=== PATIENT | female | born 1960 | race African-American/Black ===

== ENCOUNTER 2024-05-06 16:26 | Emergency (ER) | payer MEDICAID ==
[~2024-05-06] VITALS: Ht 170.2 cm; Wt 86.5 kg
[~2024-05-06 16:26] MED LIST: ALBUPOW26; ALPR0.25 GT; AMLO1TAB22; DICY10CA PO; DIPH2.5T73 OR; DOCU50CA2; FLUT250M2; HYDR-4833; NAPR125S6; PEPCID; PROMCRY XX; PROZAC; SOMA; TRIA75TA11; TRIP1TAB OR; ZOFR4T PO; ZOLP5TAB OR; [UNRECOGNIZED DRUG - OTHER]
--- NOTE | 2024-05-06 17:46 | ED.PDOC ---
GI ASSESSMENT HPI Comments 63 year old female ADEEL presents to the ED with chief complaint of abdominal pain. Patient reports that she has been experiencing epigastric abdominal burning with associated abdominal distention for the past 6 months due to a hiatal hernia. Patient relays that she was referred by her PCP to a surgeon, awaiting appointment. Patient denies any N/V/D, dizziness, fever, chills, or chest pain. Chief Complaint: Abdominal Pain Time Seen by MD: 17:42 Primary Care Provider: JULIETA SYED Reviewed Notes: Nurses Notes, Student Services Director Notes, Medications, Allergies Allergies: Coded Allergies: Codeine (Verified Allergy, Mild, SWELLING, 07/11/23) TYLENOL WITH CODEINE #4 Aspirin (Verified Allergy, Unknown, 07/11/23) Penicillins (Verified Allergy, Unknown, 07/11/23) Morphine (Verified Adverse Reaction, Mild, UPSET STOMACH, 07/11/23) Home Meds Active Scripts Ondansetron Odt 4MG Tab (ZOFRAN PO) 4 Mg Tb, 4 MG PO Q8HR PRN, #14 TAB ODT TAB-DISSOLVE IN MOUTH, THEN SWALLOW Prov:RAISSA NELSON MD 07/11/23 Dicyclomine Hcl (BENTYL CAPSULE) 10 Mg Cp, 1 CAP PO Q6HR PRN, #20 CAP 3 Refills Prov:RAISAS NELSON MD 07/11/23 Reported Medications Promethazine Hcl (Promethazine Hcl) Hcl Cry, 1 XX 11/15/11 Triprolidine & Pseudoephedrine (Aprodine) 1 Tab Tab, 1 TAB OR 11/15/11 Diphenoxylate W/ Atropine (Lomotil) 2.5 Mg Tab, 2.5 MG OR 11/15/11 Alprazolam (Xanax) 0.25 Mg Tb, 0.25 MG GT 10/12/10 Zolpidem Tartrate (Ambien) 5 Mg Tab, 5 MG OR 10/12/10 [Prozac] No Conflict Check 10/12/10 Docusate Sodium (Colace) 50 Mg Cap 10/11/10 [Pepcid] No Conflict Check 10/11/10 Naproxen (Naprosyn) 125 Mg/5 Ml Lana 10/11/10 [Liberderm] No Conflict Check 10/07/09 Albuterol (Albuterol) Pow 10/07/09 Fluticasone-Salmeterol (Advair Diskus 250/50) 1 Puff Ih 10/07/09 Amlodipine Besylate (Amlodipine Besylate) 5 Mg Tab 10/07/09 [Soma] 350 MG No Conflict Check 10/07/09 [Sun Valley] ([place] 5-325 mg) 7.5 MG No Conflict Check 10/07/09 [Hctz/Triamteren1 Ta1] (Hctz/Triamterene) No Conflict Check 10/07/09 Information Source: Patient, Emergency Med Personnel Mode of Arrival: EMS Timing: Months Duration: Since onset Prehospital treatment: None Quality: Burning Vomitus: None Stool: Normal Severity: Moderate Recent: None Recent Hx of: None Pain Location: Epigastric Modifying Factors: Nothing Associated sign and symptoms: Abdominal Pain Past Medical History PAST MEDICAL HISTORY: Anxiety, Arthritis, Asthma, CHF, HTN Past Medical History (Other): Sciatica Surgical History: Hysterectomy, Pacemaker Surgical History (Other): Back surgery, breast reduction 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 Family History Family History: No family hx of Cancer, No family hx of DM, No family hx of Heart kaitlynn, No family hx of HTN, No family hx of Stroke Social History Smoker: Non-Smoker Alcohol: Denies ETOH Use Drugs: Denies Drug Use Lives In: Home Constitutional: denies: chills, diaphoresis, fatigue, fever, malaise, sweats, weakness, others EENTM: denies: blurred vision, double vision, ear bleeding, ear discharge, ear drainage, ear pain, ear ringing, eye pain, eye redness, hearing loss, mouth pain, mouth swelling, nasal discharge, nose bleeding, nose congestion, nose pain, photophobia, tearing, throat pain, throat swelling, voice changes, others Respiratory: denies: cough, hemoptysis, orthopnea, SOB at rest, shortness of breath, SOB with excertion, stridor, wheezing, others Cardiovascular: denies: chest pain, dizzy spells, diaphoresis, Dyspnea on exertion, edema, irregular heart beat, left arm pain, lightheadedness, palpitations, PND, syncope, others Gastrointestinal: reports: abdomen distended, abdominal pain; denies: blood streaked bowels, constipated, diarrhea, dysphagia, difficulty swallowing, hematemesis, melena, nausea, poor appetite, poor fluid intake, rectal bleeding, rectal pain, vomiting, others Genitourinary: denies: abnormal vagina bleeding, burning, dyspareunia, dysuria, flank pain, frequency, hematuria, incontinence, pain, , vagina discharge, urgency, others Neurological: denies: dizziness, fainting, headache, left sided numbness, left sided weakness, numbness, paresthesia, pre-existing deficit, right sided numbness, right sided weakness, seizure, speech problems, tingling, tremors, weakness, others Musculoskeletal: denies: back pain, gout, joint pain, joint swelling, muscle pain, muscle stiffness, neck pain, others Integumetry: denies: bruises, change in color, change in hair/nails, dryness, laceration, lesions, lumps, rash, wounds, others Allergic/Immunocompromised: denies: Difficulty Healing, Frequent Infections, Hives, Itching, others Hematologic/Lymphatic: denies: anemia, blood clots, easy bleeding, easy bruising, swollen glands, others Endocrine: denies: excessive hunger, excessive sweating, excessive thirst, excessive urination, flushing, intolerance to cold, intolerance to heat, unexplained weight gain, unexplained weight loss, others Psychiatric: denies: anxiety, bipolar disorder, depression, hopeless, panic disorder, schizophrenia, sleepless, suicidal, others All Other Systems: Reviewed and Negative Physical Exam General Appearance: No Apparent Distress, Normal HEENT: Normal ENT Inspection, PERRL/EOMI Neck: Full Range of Motion, Non-Tender, Normal, Normal Inspection Respiratory: Chest Non-Tender, Lungs Clear, No Accessory Muscle Use, No Respiratory Distress, Normal Breath Sounds Cardiovascular: No Edema, No JVD, No Murmur, No Gallop, Normal Peripheral Pulses, Regular Rate/Rhythm Breast Exam: Deferred Gastrointestinal: No Organomegaly, No Pulsatile Mass, Normal Bowel Sounds, Soft, Other (Mildly distended epigastric region, no mass) Genitalia: Deferred Pelvic: Deferred Rectal: Deferred Extremities: No calf tenderness, Normal capillary refill, Normal inspection, Normal range of motion, Non-tender, No pedal edema Musculoskeletal : Apperance: Normal Neurologic: Alert, panama hat blocker II-XII nml as Tested, No Motor Deficits, Normal Affect, Normal Mood, No Sensory Deficits Cerebellar Function: Normal Reflexes: Normal Skin: Dry, Normal Color, Warm Lymphatic: No Adenopathy Was a procedure done? Was a procedure done?: No GI differential Dx Differential Diagnosis: Bowel Obstruction, Cholangitis, Cholecystitis, Constipation, Diverticular disease, Gastritis/PUD, Gastroenteritis, GI hemorrhage, Hernia, Hepatitis, Inflammatory BD, Ischemic Bowel, Pancreatitis, UTI, Urolithiasis, Dehydration, Diabetes/ DKA, Electrolyte Imbalance, Food Poisoning, Bacterial, Parasitic, Viral, Hypovolemia, Impaction, Mass, Stress Ulcer, Kidney Stone X-Ray, Labs, Meds, VS Vital Signs Date Time Temp Pulse Resp B/P (MAP) Pulse Ox O2 Delivery O2 Flow Rate FiO2 05/06/24 17:35 93 18 124/91 (102) 99 Lab Test 05/06/24 18:12 Range/Units White Blood Count 11.7 H 4.4-10.8 10^3/uL Red Blood Count 5.03 4.0-5.20 10^6/uL Hemoglobin 14.6 12.2-16.2 g/dL Hematocrit 42.2 36.0-46.0 % Mean Corpuscular Volume 83.8 80.0-100.0 fL Mean Corpuscular Hemoglobin 29.0 28.0-32.0 pg Mean Corpuscular Hemoglobin Concent 34.5 32.0-36.0 g/dL Red Cell Distribution Width 14.6 H 11.8-14.3 % Platelet Count 166 140-450 10^3/uL Mean Platelet Volume 9.2 6.9-10.8 fL Neutrophils (%) (Auto) 63.9 37.0-80.0 % Lymphocytes (%) (Auto) 30.6 10.0-50.0 % Monocytes (%) (Auto) 4.2 0.0-12.0 % Eosinophils (%) (Auto) 1.0 0.0-7.0 % Basophils (%) (Auto) 0.3 0.0-2.0 % Neutrophils # (Auto) 7.5 1.6-8.6 10 ^3/uL Lymphocytes # (Auto) 3.6 0.4-5.4 10 ^3/uL Monocytes # (Auto) 0.5 0-1.3 10 ^3/uL Eosinophils # (Auto) 0.1 0-0.8 10 ^3/uL Basophils # (Auto) 0 0-0.2 10 ^3/uL Nucleated Red Blood Cells 0.2 % Sodium Level 141 136-145 mmol/L Potassium Level 3.6 3.5-5.1 mmol/L Chloride Level 110 H 98-107 mmol/L Carbon Dioxide Level 25 20-31 mmol/L Anion Gap 6 5-15 Blood Urea Nitrogen 7 L 9-23 mg/dL Creatinine 0.91 0.550-1.02 mg/dL Glomerular Filtration Rate Calc 72 >90 mL/min BUN/Creatinine Ratio 7.7 L 10.0-20.0 Serum Glucose 75 74-106 mg/dL Calcium Level 10.3 8.7-10.4 mg/dL Total Bilirubin 0.3 0.2-1.0 mg/dL Aspartate Amino Transferase (AST) 16 13-40 U/L Alanine Aminotransferase (ALT) 20 7-40 U/L Alkaline Phosphatase 144 H 46-116 U/L Total Protein 7.6 5.7-8.2 g/dL Albumin 4.6 3.2-4.8 g/dL Lipase 38 12-53 U/L Time of 1ST Reevaluation: 18:42 Reevaluation 1ST: Unchanged Time of 2ND Reevaluation: 21:19 Reevaluation 2ND: Improved Patient Education/Counseling: Diagnosis, Treatment, Prognosis, Need For Follow Up Family Education/Counseling: No Family Present Comments pt does not have an identifiable hernia. she does not have colitis, ileus, sbo, stones. she is constipated and her ct finding on the pancreas is nonspecific, which she will need follow up with her doctor Additional Information - I reviewed the following notes from patient's past medical encounters: 07/11/23 for N/V and abdominal pain - The following tests were ordered, and results were reviewed by me: CT Abd/Pel, CBC, CMP, Lipase - I reviewed and agreed with the following test results read by other provider: CT Abd/Pel - I discussed treatments and results with medical personnel. Departure 1 Departure Time of Disposition: 21:21 Impression: Primary Impression: Constipation Qualified Codes: K59.01 - Slow transit constipation Additional Impression: Abdominal pain Qualified Codes: R10.9 - Unspecified abdominal pain Disposition: HOME / SELF CARE / HOMELESS Condition: Good Additional Instructions: follow up with your doctor for ct report. feel free to return for any concerns e-Prescriptions Polyethylene Glycol 3350 (Miralax) 17 Gm Pow 17 GM PO DAILY PRN for 2 Days, #2 POW Prov: JOANNA DU MD 05/06/24 Discharged With: Self Critical Care Note Critical Care Time?: No Stability Stability form required: No Heart Score Heart Score: Heart Score Response (Comments) Value History N/A 0 EKG N/A 0 Age N/A 0 Risk Factors N/A 0 Troponin N/A 0 Total 0 I personally scribed for JOANNA DU MD ([email or web address]) on 05/06/24 at 17:46. Electronically submitted by Berhane Jansen ([email or web address]). JOANNA DU MD May 06, 2024 17:46
[2024-05-06 19:08] LABS: Basophils # (auto) 0 10 ^3/uL (0-0.2); Basophils % (auto) 0.3 % (0.0-2.0); Eosinophils # (auto) 0.1 10 ^3/uL (0-0.8); Hematocrit 42.2 % (36.0-46.0); Hemoglobin 14.6 g/dL (12.2-16.2); Lymphocytes # (auto) 3.6 10 ^3/uL (0.4-5.4); Lymphocytes % (auto) 30.6 % (10.0-50.0); Mean Corpuscular Hgb Conc. 34.5 g/dL (32.0-36.0); Mean Corpuscular Volume 83.8 fL (80.0-100.0); Monocytes # (auto) 0.5 10 ^3/uL (0-1.3); Monocytes % (auto) 4.2 % (0.0-12.0); Neutrophils # (auto) 7.5 10 ^3/uL (1.6-8.6); Neutrophils % (auto) 63.9 % (37.0-80.0); Nucleated Red Blood Cells % 0.2 %; Platelet Count (auto) 166 10^3/uL (140-450); Red Blood Cells 5.03 10^6/uL (4.0-5.20); Red Cell Distribution Width 14.6 % (11.8-14.3); White Blood Cell 11.7 10^3/uL (4.4-10.8)
[2024-05-06 19:20] LABS: Alanine Aminotransferase 20 U/L (7-40); Anion Gap 6 (5-15); Aspartate Aminotransferase 16 U/L (13-40); BUN/Creatinine Ratio 7.7 (10.0-20.0); Calcium 10.3 mg/dL (8.7-10.4); Carbon Dioxide 25 mmol/L (20-31); Glucose 75 mg/dL (74-106); Lipase 38 U/L (12-53); Potassium 3.6 mmol/L (3.5-5.1); Sodium 141 mmol/L (136-145)
[2024-05-06 19:21] LABS: Albumin 4.6 g/dL (3.2-4.8); Total Protein 7.6 g/dL (5.7-8.2)
--- NOTE | 2024-05-06 19:21 | DVH ---
Exam: CT CT AB PEL WO CON-NO ORAL OR IV History: r/o sbo Comparison Study: None available at time of dictation. TECHNIQUE: Multidetector CT of the abdomen was performed from lung bases to pubic symphysis. Imaging was performed without IV contrast. Axial, coronal and sagittal multiplanar reformats were obtained fr om the axial data set by the technologist. Radiation Dose Information: CT Dose: CTDI volume is 14.54 mGy. Dose-length product is 803.17 mGy*cm FINDINGS: Evaluation of solid organs is limited due to lack of intravenous contrast use. Findings: Lung Bases: No acute or significant lung base finding. Normal heart size. No pleural or pericardial effusion. Dual-chamber pacemaker wires in place Liver: The liver is normal in size. No focal lesions. Gallbladder and Biliary Tree: Gallbladder appears contracted no calcifications seen Spleen: Unremarkable Pancreas: Parenchymal irregularity of the tail of the pancreas pancreatic enzymes are abnormal recomm end MRI. Adrenal Glands: Unremarkable Kidneys: Kidneys are grossly normal without calculi or hydronephrosis. Bladder: Grossly unremarkable for degree of distention. Bowel: The stomach is grossly normal in appearance. Small bowel and colon are normal in caliber and d istribution. 7 x 6.6 cm stool-filled rectum possible fecal impaction. The appendix is not visualized ; however, no secondary findings of acute appendicitis identified. Ascites: Absent Lymphadenopathy: No mesenteric, retroperitoneal or periportal lymphadenopathy. Abdominal Wall and Mesentery: Unremarkable. Vasculature: The visualized abdominal aorta is normal in size and caliber. Evaluation of abdominal a nd pelvic vessels is limited due to lack of intravenous contrast. Pelvic Organs: Unremarkable Musculoskeletal: No aggressive focal bony lesions, acute fractures or dislocation. Pedicle screws not ed at L 5 S1. Rods have been removed. Soft tissues: Unremarkable IMPRESSION: 1. Contracted gallbladder 2. No nephrolithiasis or hydronephrosis. 3. No findings of bowel obstruction although there is a 7 x 6.7 cm stool-filled rectum raising the po ssibility of a fecal impaction 4. Irregular hypodense areas in the tail of the pancreas. If pancreatic enzymes are abnormal recommen d MRI Radiation optimization: All CT scans at this facility use at least one of these dose optimization cherelle hniques: automated exposure control mA and/or kV adjustment per patient size (includes targeted exam s where dose is matched to clinical indication) or iterative reconstruction.
[2024-05-06 19:22] LABS: Alkaline Phosphatase 144 U/L (46-116); Bilirubin, Total 0.3 mg/dL (0.2-1.0); Blood Urea Nitrogen 7 mg/dL (9-23); Chloride 110 mmol/L (98-107)
[2024-05-06] MEDS ORDERED: POLY335015 PO (21:23)
[2024-05-06 21:45] VITALS: BP 124/86; PULSE 80; RESP 13; TEMP 98.1; O2SAT 99
== END 2024-05-06 21:59 | disposition home or self-care (01) ==
LOC: EDBD 16:26 → ER 16:26
DX: K59.00 Constipation, unspecified (principal); I11.0 Hypertensive heart disease with heart failure; I50.9 Heart failure, unspecified; F41.9 Anxiety disorder, unspecified; J45.909 Unspecified asthma, uncomplicated; M19.90 Unspecified osteoarthritis, unspecified site; Z79.51 Long term (current) use of inhaled steroids; Z90.710 Acquired absence of both cervix and uterus; Z95.0 Presence of cardiac pacemaker; Z88.0 Allergy status to penicillin; Z88.5 Allergy status to narcotic agent; Z88.6 Allergy status to analgesic agent
CPT/HCPCS: 36415; 74176; 80053; 83690; 85025

== ENCOUNTER 2024-07-21 10:02 | Emergency (ER) | payer MEDICAID ==
[~2024-07-21] VITALS: Ht 170.2 cm; Wt 75.0 kg
[~2024-07-21 10:02] MED LIST changes: +POLY335015 PO
--- NOTE | 2024-07-21 10:56 | ED.PDOC ---
History of Present Illness HPI Comments 63F BIBA w/ no prior Hx associated to the c/c of Flu-like Symptoms. Pt reports that she has had SHANKS, Body Aches, and a fever since 0230 this morning. Pt notes that she lives with 13 grandsons and that "somebody is always sick at home". PMHx of Anxiety, Arthritis, Asthma, CHF, HTN and Sciatica. SHx of Hysterectomy, Pacemaker, Back Sx and Breast Sx. Denies chills, N/V/D, SOB CP or no other associated symptom's, modifiers, recent injuries or sick contacts at this time. Chief Complaint: Flu like Time Seen by MD: 10:30 Primary Care Provider: JULIETA SYED Reviewed Notes: Nurses Notes, Circulation Representative Notes, Medications, Allergies Allergies: Coded Allergies: Codeine (Verified Allergy, Mild, SWELLING, 07/11/23) TYLENOL WITH CODEINE #4 Aspirin (Verified Allergy, Unknown, 07/11/23) Penicillins (Verified Allergy, Unknown, 07/11/23) Morphine (Verified Adverse Reaction, Mild, UPSET STOMACH, 07/11/23) Home Meds Active Scripts Polyethylene Glycol 3350 (Miralax) 17 Gm Pow, 17 GM PO DAILY PRN for 2 Days, #2 POW Prov:JOANNA DU MD 05/06/24 Ondansetron Odt 4MG Tab (ZOFRAN PO) 4 Mg Tb, 4 MG PO Q8HR PRN, #14 TAB ODT TAB-DISSOLVE IN MOUTH, THEN SWALLOW Prov:RAISSA NELSON MD 07/11/23 Dicyclomine Hcl (BENTYL CAPSULE) 10 Mg Cp, 1 CAP PO Q6HR PRN, #20 CAP 3 Refills Prov:RAISSA NELSON MD 07/11/23 Reported Medications Promethazine Hcl (Promethazine Hcl) Hcl Cry, 1 XX 11/15/11 Triprolidine & Pseudoephedrine (Aprodine) 1 Tab Tab, 1 TAB OR 11/15/11 Diphenoxylate W/ Atropine (Lomotil) 2.5 Mg Tab, 2.5 MG OR 11/15/11 Alprazolam (Xanax) 0.25 Mg Tb, 0.25 MG GT 10/12/10 Zolpidem Tartrate (Ambien) 5 Mg Tab, 5 MG OR 10/12/10 [Prozac] No Conflict Check 10/12/10 Docusate Sodium (Colace) 50 Mg Cap 10/11/10 [Pepcid] No Conflict Check 10/11/10 Naproxen (Naprosyn) 125 Mg/5 Ml Lana 10/11/10 [Liberderm] No Conflict Check 10/07/09 Albuterol (Albuterol) Pow 10/07/09 Fluticasone-Salmeterol (Advair Diskus 250/50) 1 Puff Ih 10/07/09 Amlodipine Besylate (Amlodipine Besylate) 5 Mg Tab 10/07/09 [Soma] 350 MG No Conflict Check 10/07/09 [[place]] ([place] 5-325 mg) 7.5 MG No Conflict Check 10/07/09 [Hctz/Triamteren1 Ta1] (Hctz/Triamterene) No Conflict Check 10/07/09 Information Source: Patient Mode of Arrival: EMS Severity: Moderate Timing: Hours Duration: Since onset, Hours Prehospital treatment: None Past Medical History PAST MEDICAL HISTORY: Anxiety, Arthritis, Asthma, CHF, HTN Past Medical History (Other): sciatica Surgical History: Hysterectomy, Pacemaker Surgical History (Other): 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 [employer]ER Hx Family History Family History: Reviewed,noncontributory to illness, Unknown Social History Smoker: Non-Smoker Alcohol: Denies ETOH Use Drugs: Denies Drug Use Lives In: Home Constitutional: reports: fever, others (Body Aches); denies: chills, diaphoresis, fatigue, malaise, sweats, weakness EENTM: denies: blurred vision, double vision, ear bleeding, ear discharge, ear drainage, ear pain, ear ringing, eye pain, eye redness, hearing loss, mouth pain, mouth swelling, nasal discharge, nose bleeding, nose congestion, nose pain, photophobia, tearing, throat pain, throat swelling, voice changes, others Respiratory: denies: cough, hemoptysis, orthopnea, SOB at rest, shortness of breath, SOB with excertion, stridor, wheezing, others Cardiovascular: denies: chest pain, dizzy spells, diaphoresis, Dyspnea on exertion, edema, irregular heart beat, left arm pain, lightheadedness, palpitations, PND, syncope, others Gastrointestinal: denies: abdomen distended, abdominal pain, blood streaked bowels, constipated, diarrhea, dysphagia, difficulty swallowing, hematemesis, melena, nausea, poor appetite, poor fluid intake, rectal bleeding, rectal pain, vomiting, others Genitourinary: denies: abnormal vagina bleeding, burning, dyspareunia, dysuria, flank pain, frequency, hematuria, incontinence, pain, , vagina discharge, urgency, others Neurological: reports: headache; denies: dizziness, fainting, left sided numbness, left sided weakness, numbness, paresthesia, pre-existing deficit, right sided numbness, right sided weakness, seizure, speech problems, tingling, tremors, weakness, others Musculoskeletal: denies: back pain, gout, joint pain, joint swelling, muscle pain, muscle stiffness, neck pain, others Integumetry: denies: bruises, change in color, change in hair/nails, dryness, laceration, lesions, lumps, rash, wounds, others Allergic/Immunocompromised: denies: Difficulty Healing, Frequent Infections, Hives, Itching, others Hematologic/Lymphatic: denies: anemia, blood clots, easy bleeding, easy bruising, swollen glands, others Endocrine: denies: excessive hunger, excessive sweating, excessive thirst, excessive urination, flushing, intolerance to cold, intolerance to heat, unexplained weight gain, unexplained weight loss, others Psychiatric: denies: anxiety, bipolar disorder, depression, hopeless, panic disorder, schizophrenia, sleepless, suicidal, others All Other Systems: Reviewed and Negative Physical Exam General Appearance: No Apparent Distress, Normal HEENT: Normal ENT Inspection, Pharynx Normal, TMs Normal Neck: Full Range of Motion, Non-Tender, Normal, Normal Inspection Respiratory: Chest Non-Tender, Lungs Clear, No Accessory Muscle Use, No Respiratory Distress, Normal Breath Sounds Cardiovascular: No Edema, No JVD, No Murmur, No Gallop, Normal Peripheral Pulses, Regular Rate/Rhythm Breast Exam: Deferred Gastrointestinal: No Organomegaly, Non Tender, No Pulsatile Mass, Normal Bowel Sounds, Soft Genitalia: Deferred Pelvic: Deferred Rectal: Deferred Extremities: No calf tenderness, Normal capillary refill, Normal inspection, Normal range of motion, Non-tender, No pedal edema Musculoskeletal : Apperance: Normal Neurologic: Alert, health and safety director II-XII nml as Tested, No Motor Deficits, Normal Affect, Normal Mood, No Sensory Deficits Cerebellar Function: Normal Reflexes: Normal Skin: Dry, Normal Color, Warm Lymphatic: No Adenopathy Was a procedure done? Was a procedure done?: No Differential Dx Considerations may include: Viral syndrome, pneumonia, ACS, electrolyte disorder X-Ray, Labs, Meds, VS Vital Signs Date Time Temp Pulse Resp B/P (MAP) Pulse Ox O2 Delivery O2 Flow Rate FiO2 07/21/24 13:14 97.7 98 15 129/87 (101) 98 97.7 07/21/24 10:28 101.5 106 18 114/81 (92) 95 101.5 07/21/24 10:07 102.7 107 18 132/77 (95) 97 Lab Test 07/21/24 15:15 07/21/24 13:48 07/21/24 11:50 07/21/24 11:30 Range/Units Troponin I High Sensitivity < 3 L < 3 L </=34 ng/L POC Glucose 76 70-106 mg/dl Influenza Type A Antigen Negative Negative Influenza Type B Antigen Negative Negative SARS-CoV-2 Antigen (Rapid) Positive NEGATIVE Test 07/21/24 10:53 07/21/24 10:50 Range/Units Urine Color Light-yellow Yellow Urine Clarity Clear Clear Urine pH 6.5 5.0-9.0 Urine Specific [place] 1.012 1.001-1.035 Urine Protein Negative Negative Urine Ketones Negative Negative Urine Blood Negative Negative /uL Urine Nitrite Negative Negative Urine Bilirubin Negative Negative Urine Urobilinogen Normal Negative mg/dL Urine Leukocyte Esterase Negative Negative /uL Urine RBC 1 0 - 4 /hpf Urine Microscopic WBC < 1 0-5 /HPF Urine Squamous Epithelial Cells None seen <5 /hpf Urine Bacteria None seen None Seen /hpf Urine Glucose Normal Normal mg/dL White Blood Count 6.6 4.4-10.8 10^3/uL Red Blood Count 4.43 4.0-5.20 10^6/uL Hemoglobin 12.9 12.2-16.2 g/dL Hematocrit 36.0 36.0-46.0 % Mean Corpuscular Volume 81.3 80.0-100.0 fL Mean Corpuscular Hemoglobin 29.1 28.0-32.0 pg Mean Corpuscular Hemoglobin Concent 35.9 32.0-36.0 g/dL Red Cell Distribution Width 13.9 11.8-14.3 % Platelet Count 166 140-450 10^3/uL Mean Platelet Volume 9.0 6.9-10.8 fL Neutrophils (%) (Auto) 82.7 H 37.0-80.0 % Lymphocytes (%) (Auto) 11.1 10.0-50.0 % Monocytes (%) (Auto) 5.0 0.0-12.0 % Eosinophils (%) (Auto) 0.5 0.0-7.0 % Basophils (%) (Auto) 0.7 0.0-2.0 % Neutrophils # (Auto) 5.5 1.6-8.6 10 ^3/uL Lymphocytes # (Auto) 0.7 0.4-5.4 10 ^3/uL Monocytes # (Auto) 0.3 0-1.3 10 ^3/uL Eosinophils # (Auto) 0 0-0.8 10 ^3/uL Basophils # (Auto) 0 0-0.2 10 ^3/uL Nucleated Red Blood Cells 0.1 % Sodium Level 137 136-145 mmol/L Potassium Level 3.7 3.5-5.1 mmol/L Chloride Level 104 98-107 mmol/L Carbon Dioxide Level 25 20-31 mmol/L Anion Gap 8 5-15 Blood Urea Nitrogen 11 9-23 mg/dL Creatinine 0.99 0.550-1.02 mg/dL Glomerular Filtration Rate Calc 65 >90 mL/min BUN/Creatinine Ratio 11.1 10.0-20.0 Serum Glucose 86 74-106 mg/dL Lactic Acid Level 1.1 0.4-2.0 mmol/L Calcium Level 9.7 8.7-10.4 mg/dL Total Bilirubin 0.2 0.2-1.0 mg/dL Aspartate Amino Transferase (AST) 24 13-40 U/L Alanine Aminotransferase (ALT) 22 7-40 U/L Alkaline Phosphatase 132 H 46-116 U/L Troponin I High Sensitivity < 3 L </=34 ng/L Total Protein 7.0 5.7-8.2 g/dL Albumin 4.3 3.2-4.8 g/dL Current Medications Medications (Trade) Dose Ordered Sig/Pietro Route Start Time Stop Time Status Last Admin Sodium Chloride 1,000 ml @ 1,000 mls/hr Q1H ONCE IV 07/21/24 10:45 07/21/24 11:44 DC 07/21/24 11:06 Ondansetron HCl (Zofran) 4 mg ONCE ONCE IV 07/21/24 10:45 07/21/24 10:46 DC 07/21/24 11:08 Ketorolac Tromethamine (Toradol Injection) 15 mg ONCE ONCE IV 07/21/24 10:45 07/21/24 10:46 DC 07/21/24 11:08 Ceftriaxone Sodium 50 ml @ 100 mls/hr ONCE ONCE IV 07/21/24 10:45 07/21/24 11:14 DC 07/21/24 11:08 [place] [id number] Ph: [phone] DIAGNOSTIC IMAGING Diagnostic Imaging Report : [id number] Signed PATIENT: ALDA WHARTON ACCT: [id number] UNIT: [id number] : 1960 LOC: ER ROOM / BED: / AGE / SEX: 63 / F ADM STATUS: REG ER SERVICE 1042 ORDERING PHYSICIAN: JEREMIE KWON MD PROCEDURE(s): CXRP - CHEST PORTABLE REASON: fever ORDER NUMBER(s): [id number], ACCESSION NUMBER(s): [id number] EXAM: XY CHEST PORTABLE Indication: fever Technique: Single frontal view of the chest was obtained Comparison: None FINDINGS: Lines and Tubes: Cardiac pacemaker projects over left chest wall. Lungs: No focal consolidation. Pleura: No effusion. No pneumothorax. Cardiomediastinal contours: Unremarkable Bones: No acute osseous abnormality. IMPRESSION: No acute cardiopulmonary disease. ATED BY: HUMBLE SCHMITT MD DICTATED DATE/TIME: 07/21/24 1139 SIGNED BY: HUMBLE SCHMITT MD SIGNED DATE/TIME: 07/21/24 1139 CC: Time of 1ST Reevaluation: 11:00 Reevaluation 1ST: Unchanged Patient Education/Counseling: Diagnosis, Treatment, Prognosis Family Education/Counseling: No Family Present Departure 1 Departure Time of Disposition: 16:00 (Patient has COVID. Patient is not requiring oxygen. We will discharge patient home with outpatient follow up) Impression: Primary Impression: COVID-19 Additional Impression: Viral syndrome Disposition: HOME / SELF CARE / HOMELESS Condition: Stable Additional Instructions: You have COVID. It is important to stay well rested and well hydrated. For a sore throat you can drink warm tea with honey. You can take [id number] pseudoephedrine for nasal congestion. You were prescribed paxlovid. Please take as directed. For pain you can take the followinam: Ibuprofen 400mg with food Noon: Acetaminophen 1000mg 4pm: Ibuprofen 400mg with food 8pm: Acetaminophen 1000mg You should follow up with your regular doctor within one week to ensure you are doing better. If your symptoms worsen or you have any other concerns then please return to the ER. e-Prescriptions Nirmatrelvir/Ritonavir (PAXLOVID 10 x 150 MG & 10 x 100MG) 1 Tab Tab 1 TAB PO BID for 5 Days, #10 TAB Prov: JEREMIE KWON MD 07/21/24 Discharged With: Self Critical Care Note Critical Care Time?: No Stability Stability form required: No I personally scribed for JEREMIE KWON MD ([email or web address]) on 07/21/24 at 10:56. Electronically submitted by Bruce Vivas ([email or web address]). I personally scribed for JEREMIE KWON MD ([email or web address]) on 07/21/24 at 13:50. Electronically submitted by Bruce Vivas ([email or web address]). JEREMIE KWON MD Jul 21, 2024 10:56
[2024-07-21] MEDS: SODIUM CHLORIDE 0.9% 1,000 ML IV ONE (11:06)
[2024-07-21 11:07] LABS: Basophils # (auto) 0 10 ^3/uL (0-0.2); Basophils % (auto) 0.7 % (0.0-2.0); Eosinophils # (auto) 0 10 ^3/uL (0-0.8); Eosinophils % (auto) 0.5 % (0.0-7.0); Hemoglobin 12.9 g/dL (12.2-16.2); Lymphocytes # (auto) 0.7 10 ^3/uL (0.4-5.4); Lymphocytes % (auto) 11.1 % (10.0-50.0); Mean Corpuscular Hemoglobin 29.1 pg (28.0-32.0); Mean Corpuscular Hgb Conc. 35.9 g/dL (32.0-36.0); Mean Corpuscular Volume 81.3 fL (80.0-100.0); Monocytes # (auto) 0.3 10 ^3/uL (0-1.3); Neutrophils # (auto) 5.5 10 ^3/uL (1.6-8.6); Neutrophils % (auto) 82.7 % (37.0-80.0); Nucleated Red Blood Cells % 0.1 %; Platelet Count (auto) 166 10^3/uL (140-450); Red Blood Cells 4.43 10^6/uL (4.0-5.20); Red Cell Distribution Width 13.9 % (11.8-14.3); White Blood Cell 6.6 10^3/uL (4.4-10.8)
[2024-07-21] MEDS: KETOROLAC TROMETH 30 MG/ML 1ML VIAL IV ONE (11:08)
[2024-07-21] MEDS: cefTRIAXone 1GM/50ML D5W 50 ML IV ONE (11:08)
[2024-07-21] MEDS: ONDANSETRON HCL 4 MG/2 ML VIAL IV ONE (11:08)
[2024-07-21 11:22] LABS: Alanine Aminotransferase 22 U/L (7-40); Albumin 4.3 g/dL (3.2-4.8); Anion Gap 8 (5-15); Aspartate Aminotransferase 24 U/L (13-40); BUN/Creatinine Ratio 11.1 (10.0-20.0); Blood Urea Nitrogen 11 mg/dL (9-23); Calcium 9.7 mg/dL (8.7-10.4); Carbon Dioxide 25 mmol/L (20-31); Chloride 104 mmol/L (98-107); Glucose 86 mg/dL (74-106); Potassium 3.7 mmol/L (3.5-5.1); Sodium 137 mmol/L (136-145)
[2024-07-21 11:24] LABS: Alkaline Phosphatase 132 U/L (46-116); Bilirubin, Total 0.2 mg/dL (0.2-1.0)
[2024-07-21 11:27] LABS: Urine Bacteria None Seen /hpf (None Seen)
[2024-07-21 11:40] LABS: Urine Blood Negative /uL (Negative); Urine Clarity Clear (Clear); Urine Color Light-Yellow (Yellow); Urine Protein, UAD Negative (Negative); Urine Specific Gravity 1.012 (1.001-1.035); Urine Squamous Epithelial Cell None Seen /hpf (<5); Urine Urobilinogen Normal (Negative); Urine WBC < 1 /HPF (0-5); Urine pH 6.5 (5.0-9.0)
--- NOTE | 2024-07-21 11:42 | DVH ---
EXAM: XY CHEST PORTABLE Indication: fever Technique: Single frontal view of the chest was obtained Comparison: None FINDINGS: Lines and Tubes: Cardiac pacemaker projects over left chest wall. Lungs: No focal consolidation. Pleura: No effusion. No pneumothorax. Cardiomediastinal contours: Unremarkable Bones: No acute osseous abnormality. IMPRESSION: No acute cardiopulmonary disease.
[2024-07-21 12:22] LABS: Rapid Influenza A Negative (Negative); Rapid Influenza B Negative (Negative)
[2024-07-21 12:23] LABS: COVID19 ANTIGEN SOFIA FIA POSITIVE (NEGATIVE)
[2024-07-21 13:30] VITALS: PULSE 97; RESP 17; O2SAT 98
[2024-07-21 16:00] VITALS: BP 152/85; PULSE 97; RESP 17; O2SAT 99
[2024-07-21] MEDS ORDERED: NIRM1TAB7 PO (16:03)
[2024-07-21 16:08] VITALS: TEMP 101.9
[2024-07-21] MEDS: ACETAMINOPHEN 325 MG TAB PO ONE (16:08)
== END 2024-07-21 16:22 | disposition home or self-care (01) ==
LOC: ER 10:02 → EDBD 10:02 → ER 16:22
DX: U07.1 COVID-19 (principal); B34.9 Viral infection, unspecified; R51.9 Headache, unspecified; R50.9 Fever, unspecified; M79.10 Myalgia, unspecified site; I11.0 Hypertensive heart disease with heart failure; I50.9 Heart failure, unspecified; F41.9 Anxiety disorder, unspecified; J45.909 Unspecified asthma, uncomplicated; M19.90 Unspecified osteoarthritis, unspecified site; Z90.710 Acquired absence of both cervix and uterus; Z95.0 Presence of cardiac pacemaker; Z98.890 Other specified postprocedural states; Z88.0 Allergy status to penicillin; Z88.5 Allergy status to narcotic agent; Z88.6 Allergy status to analgesic agent; Z79.51 Long term (current) use of inhaled steroids; Z79.899 Other long term (current) drug therapy
CPT/HCPCS: 36415; 71045; 80053; 81001; 82947; 83605; 84484; 85025; 87040; 87426; 87804; 96365; 96366; 96375; 99285; J0696; J1885; J2405; J7030; 82962